=== PATIENT | male | born 1975 | race African-American/Black ===

== ENCOUNTER 2017-09-13 17:24 | Emergency (ER) | payer MEDICARE, MEDICAID ==
[~2017-09-13] VITALS: Ht 152.4 cm; Wt 59.0 kg
[~2017-09-13 17:24] MED LIST: AMIODARONE HCL100 MG ORAL; ASCORBIC ACID500 MG ORAL; BACTRIM DOUBLE S1 E1 ORAL; CEPHALEXIN500 MG ORAL; COUMADIN5 MG ORAL; DEPAKOTE ER500 MG ORAL; DILAUDID4 MG ORAL; DILAUDID8 MG PO; DILTIAZEM HCL90 MG PO; DOCUSATE SODIU100 MG ORAL; FERROUS SULFAT325 MG ORAL; HYDROCODON-ACE1 EA13 ORAL; HYDROMORPH0.5 MG/0.5 IM; KLONOPIN0.5 MG ORAL; LOPRESSOR5 MG/5 ML IV; METOPROLOL SUC100 MG ORAL; MS CONTIN15 MG ORAL; MULTIVITAMINS1 EA13 ORAL; PROTONIX20 MG ORAL; VITAMIN C500 M1 ORAL; ZINC SULFATE220 M1 ORAL; ZOFRAN4 M3 IM
[2017-09-13] MEDS ORDERED: Vancomycin 1 GM in NS 275 ML IV ONE (18:15)
[2017-09-13 18:30] VITALS: BP 117/89
[2017-09-13 18:50] LABS: BASOPHILS % (AUTO) 1.8 % (0.0-2.0); EOSINOPHILS % (AUTO) 2.6 % (0.0-3.0); HEMATOCRIT 37.7 % (42.0-52.0); LYMPHOCYTES % (AUTO) 15.2 % (20.0-45.0); MEAN CORPUSCULAR VOLUME 80 FL (80-99); MONOCYTES % (AUTO) 7.2 % (1.0-10.0); NEUTROPHILS % (AUTO) 73.3 % (45.0-75.0); PLATELET COUNT 452 K/UL (150-450); RED BLOOD COUNT 4.68 M/UL (4.70-6.10); RED CELL DISTRIBUTION WIDTH 16.8 % (11.6-14.8); WHITE BLOOD COUNT 6.9 K/UL (4.8-10.8)
[2017-09-13 18:59] LABS: ANION GAP 8 mmol/L (5-15); BLOOD UREA NITROGEN 8 mg/dL (7-18); CALCIUM 9.3 MG/DL (8.5-10.1); CARBON DIOXIDE 30 MMOL/L (21-32); CHLORIDE 102 MMOL/L (98-107); CREATININE 0.8 MG/DL (0.55-1.30); SODIUM 140 MMOL/L (136-145)
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
[2017-09-13 19:04] LABS: ALANINE AMINOTRANSFERASE 15 U/L (12-78); ALBUMIN 2.5 G/DL (3.4-5.0); ALBUMIN/GLOBULIN RATIO 0.4 (1.0-2.7); ALKALINE PHOSPHATASE 104 U/L (46-116); ASPARTATE AMINO TRANSFERASE 26 U/L (15-37); BILIRUBIN,TOTAL 0.2 MG/DL (0.2-1.0); CREATINE KINASE 139 U/L (26-308)
[2017-09-13 20:10] VITALS: BP 117/89
--- NOTE | 2017-09-14 16:35 | Diagnostic Imaging Report ---
Indication: Infection, swelling, pain Technique: 3 views left foot Comparison: none Findings: There no acute fractures. No dislocations. Exam is limited due to lack of an oblique view. There is marked dorsal soft tissue swelling. Linear opacities are seen superficial to the skin, uncertain significance but presumably clinically evident. There is pes planus deformity. No definite osseous erosions, osteolytic lesions, periosteal reaction. Bones are somewhat osteoporotic. There are degenerative changes of the first metacarpophalangeal joint The joint spaces are preserved otherwise Impression: Limited exam, as described Dorsal soft tissue swelling No plain radiographic evidence of osteomyelitis. However, plain radiographs demonstrate limited sensitivity for such, and MRI or bone scan should be considered if there is high clinical suspicion
== END 2017-09-13 20:10 | disposition left against medical advice (07) ==
LOC: EDBD 17:24 → EMR 17:48 → EDBEDREQ 18:08 → UNDOADMIN 18:23 → 4E 18:23 → EDBEDREQ 18:55 → CANBEDREQ 20:10
DX: L03.116 Cellulitis of left lower limb (principal); L89.899 Pressure ulcer of other site, unspecified stage; I82.402 Acute embolism and thrombosis of unspecified deep veins of left lower extremity; M86.9 Osteomyelitis, unspecified; F60.2 Antisocial personality disorder; I10 Essential (primary) hypertension; G82.20 Paraplegia, unspecified; Z87.828 Personal history of other (healed) physical injury and trauma
CPT/HCPCS: 36415; 80053; 82550; 83605; 85025; 87040; 99283

== ENCOUNTER 2017-09-13 22:56 | Emergency (ER) | payer MEDICARE, MEDICAID ==
[~2017-09-13] VITALS: Ht 190.5 cm; Wt 72.6 kg
[2017-09-13 23:00] VITALS: BP 137/77
[2017-09-13] MEDS ORDERED: Vancomycin 1.5gm/D5W 250ml 250 ML IVPB ONE (23:30)
[2017-09-14 00:46] VITALS: BP 137/77
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
== END 2017-09-14 00:46 | disposition left against medical advice (07) ==
LOC: EDBD 22:56 → EMR 23:10
DX: L02.612 Cutaneous abscess of left foot (principal); L03.116 Cellulitis of left lower limb; G82.20 Paraplegia, unspecified; I10 Essential (primary) hypertension
CPT/HCPCS: 99282; 99283

== ENCOUNTER → 2017-12-10 | Emergency (ER) | payer MEDICARE, MEDICAID ==
[~2017-12-10] VITALS: Ht 172.7 cm; Wt 68.0 kg
[2017-12-10 15:26] VITALS: BP 131/80
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
== END | disposition short-term general hospital (02) ==
LOC: EDUNIT# 14:51 → EDBD 14:57 → EMR 15:23
DX: G62.9 Polyneuropathy, unspecified (principal); I10 Essential (primary) hypertension; G82.20 Paraplegia, unspecified; Z88.8 Allergy status to other drugs, medicaments and biological substances
CPT/HCPCS: 99285